=== PATIENT | male | born 1960 | race Caucasian/White ===

== ENCOUNTER 2016-03-18 01:40 | Emergency (ER) | payer OTHER ==
[2016-03-18 02:28] LABS: Hematocrit 46 % (42-52); Hemoglobin 15.4 g/dl (14.0-18.0); Mean Corpuscular HGB Conc 33 g/dl (31-36); Mean Corpuscular Hemoglobin 29 pg (27-31); Mean Corpuscular Volume 87 fL (80-94); Mean Platelet Volume 7 um3 (7.4-10.4); Red Blood Count 5.36 10^6/ul (4.0-5.4); Red Cell Distribution Width 17 % (10.5-15); White Blood Count 5.5 10^3/ul (3.5-10.8)
[2016-03-18 02:46] LABS: ALT 63 U/L (7-52); AST 117 U/L (13-39); Albumin 4.1 g/dL (3.2-5.2); Alkaline Phosphatase 94 U/L (34-104); Anion Gap 15 mmol/L (2-11); BUN/Creatinine Ratio 11.2 (8-20); Blood Urea Nitrogen 11 mg/dL (6-24); CO2 Carbon Dioxide 20 mmol/L (22-32); Calcium 9.1 mg/dL (8.6-10.3); Chloride 96 mmol/L (101-111); EGFR African American 101.4 (>60); EGFR Non-African American 78.8 (>60); Globulin 4.3 g/dL (2-4); Glucose 114 mg/dL (70-100); Potassium 3.5 mmol/L (3.5-5.0); Sodium 131 mmol/L (133-145); Total Protein 8.4 g/dL (6.4-8.9)
[2016-03-18 03:19] LABS: Acetaminophen < 15 mcg/mL; Alcohol 353 mg/dL (<10); Salicylate < 2.50 mg/dL (<30)
[2016-03-18 03:30] LABS: TSH (Thyroid Stimulating Horm) 2.27 mcIU/mL (0.34-5.60)
[2016-03-18 03:42] LABS: Urine Bilirubin Negative (Negative); Urine Glucose Negative (Negative); Urine Nitrite Negative (Negative)
[2016-03-18 03:56] LABS: Benzodiazepine Urine Screen None Detected (None Detect)
--- NOTE | 2016-03-18 05:52 | ED ---
Maria E Modi Erika, scribed for David Ireland MD on 03/18/16 at 0359 . Psychiatric Complaint - HPI Summary HPI Summary: Patient is a 55-year-old male BIB police to the ED. Pt was driving and was stopped by the police, and breathalyzer read 0.28. Patient reports that he has been drinking heavily recently, and has not been eating well. He states he tends to drink more around this time of year due to the anniversary of his brother's . Pt also complains of nausea, vomiting, and abdominal pain, all of which have been occurring for weeks. LEVEL 5 CAVEAT - PT INTOXICATED - History Of Current Complaint Chief Complaint: EDSubstanceAbuse Hx Obtained From: Patient, Other: - Police Onset/Duration: Gradual Onset, Lasting Weeks, Still Present Timing: Constant Severity Initially: Moderate Character: Stuporous Aggravating Factor(s): Other - Anniversary of brother's Alleviating Factor(s): Nothing Associated Signs And Symptoms: Positive: Appetite Change Related History: Positive For: Prior Psychiatric Issues Ingestion History: Type/Name Of Drug - Alcohol, Amount Ingested - States "4 beers" - Allergies/Home Medications Allergies/Adverse Reactions: Allergies Allergy/AdvReac Type Severity Reaction Status Date / Time No Known Allergies Allergy Verified 03/18/16 02:18 PMH/Surg Hx/FS Hx/Imm Hx Endocrine/Hematology History: Denies: Hx Diabetes Cardiovascular History: Reports: Hx Angina, Hx Hypercholesterolemia, Hx Hypertension Respiratory History: Denies: Hx Asthma, Hx Chronic Obstructive Pulmonary Disease (COPD) GI History: Reports: Hx Gastroesophageal Reflux Disease, Hx Gastrointestinal Bleed, Other GI Disorders - pancreatitis; esophageal stricture Musculoskeletal History: Reports: Hx Back Problems Denies: Hx Arthritis, Hx Osteoporosis Sensory History: Reports: Hx Contacts or Glasses Opthamlomology History: Reports: Hx Contacts or Glasses - Surgical History Surgery Procedure, Year, and Place: pediatric fractures Infectious Disease History: No Infectious Disease History: Denies: Traveled Outside the [place] in Last 30 Days - Family History Known Family History: Positive: Cardiac Disease - Social History Alcohol Use: Weekly Hx Substance Use: No Substance Use Type: Reports: None Hx Tobacco Use: No Smoking Status (MU): Never Smoked Tobacco Review of Systems - ROS Summary Review of Systems Summary: LEVEL 5 CAVEAT - PT INTOXICATED Positive: Abdominal Pain, Vomiting, Nausea Psychological: Other - Intoxicated All Other Systems Reviewed And Are Negative: No Physical Exam Triage Information Reviewed: Yes Vital Signs On Initial Exam: Initial Vitals Temp Pulse Resp BP Pulse Ox 98.5 F 122 18 155/110 100 03/18/16 01:45 03/18/16 01:45 03/18/16 01:45 03/18/16 01:45 03/18/16 01:45 Vital Signs Reviewed: Yes Completion Of Physical Exam Limited Due To: Level 5 - INTOXICATED Neurological: Positive: Other - Awake, alert, agitated, and stuporous Diagnostics - Vital Signs Vital Signs Temp Pulse Resp BP Pulse Ox 03/18/16 01:45 98.5 F 122 18 155/110 100 - Laboratory Lab Results: Lab Results 03/18/16 03/18/16 03/18/16 Range/Units 02:14 02:14 03:33 WBC 5.5 (3.5-10.8) 10^3/ul RBC 5.36 (4.0-5.4) 10^6/ul Hgb 15.4 (14.0-18.0) g/dl Hct 46 (42-52) % MCV 87 (80-94) fL MCH 29 (27-31) pg MCHC 33 (31-36) g/dl RDW 17 H (10.5-15) % Plt Count 235 (150-450) 10^3/ul MPV 7 L (7.4-10.4) um3 Neut % (Auto) 56.6 (38-83) % Lymph % (Auto) 32.1 (25-47) % [place] % (Auto) 9.1 H (1-9) % Eos % (Auto) 0.2 (0-6) % Baso % (Auto) 2.0 (0-2) % Absolute Neuts (auto) 3.1 (1.5-7.7) 10^3/ul Absolute Lymphs (auto) 1.8 (1.0-4.8) 10^3/ul Absolute Monos (auto) 0.5 (0-0.8) 10^3/ul Absolute Eos (auto) 0 (0-0.6) 10^3/ul Absolute Basos (auto) 0.1 (0-0.2) 10^3/ul Absolute Nucleated RBC 0.01 10^3/ul Nucleated RBC % 0.1 Sodium 131 L (133-145) mmol/L Potassium 3.5 (3.5-5.0) mmol/L Chloride 96 L (101-111) mmol/L Carbon Dioxide 20 L (22-32) mmol/L Anion Gap 15 H (2-11) mmol/L BUN 11 (6-24) mg/dL Creatinine 0.98 (0.67-1.17) mg/dL Est GFR ( Amer) 101.4 (>60) Est GFR (Non-Af Amer) 78.8 (>60) BUN/Creatinine Ratio 11.2 (8-20) Glucose 114 H (70-100) mg/dL Calcium 9.1 (8.6-10.3) mg/dL Total Bilirubin 0.90 (0.2-1.0) mg/dL AST 117 H (13-39) U/L ALT 63 H (7-52) U/L Alkaline Phosphatase 94 (34-104) U/L Total Protein 8.4 (6.4-8.9) g/dL Albumin 4.1 (3.2-5.2) g/dL Globulin 4.3 H (2-4) g/dL Albumin/Globulin Ratio 1.0 (1-3) TSH 2.27 (0.34-5.60) mcIU/mL Urine Color Straw Urine Appearance Clear Urine pH 6.0 (5-9) Ur Specific [place] 1.002 L (1.010-1.030) Urine Protein Negative (Negative) Urine Ketones Negative (Negative) Urine Blood Negative (Negative) Urine Nitrate Negative (Negative) Urine Bilirubin Negative (Negative) Urine Urobilinogen Negative (Negative) Ur Leukocyte Esterase Negative (Negative) Urine Glucose Negative (Negative) Salicylates < 2.50 (<30) mg/dL Urine Opiates Screen (None Detect) Acetaminophen < 15 mcg/mL Ur Barbiturates Screen (None Detect) Ur Phencyclidine Scrn (None Detect) Ur Amphetamines Screen (None Detect) U Benzodiazepines Scrn (None Detect) Urine Cocaine Screen (None Detect) U Cannabinoids Screen (None Detect) Serum Alcohol 353 H (<10) mg/dL 03/18/16 Range/Units 03:33 WBC (3.5-10.8) 10^3/ul RBC (4.0-5.4) 10^6/ul Hgb (14.0-18.0) g/dl Hct (42-52) % MCV (80-94) fL MCH (27-31) pg MCHC (31-36) g/dl RDW (10.5-15) % Plt Count (150-450) 10^3/ul MPV (7.4-10.4) um3 Neut % (Auto) (38-83) % Lymph % (Auto) (25-47) % [place] % (Auto) (1-9) % Eos % (Auto) (0-6) % Baso % (Auto) (0-2) % Absolute Neuts (auto) (1.5-7.7) 10^3/ul Absolute Lymphs (auto) (1.0-4.8) 10^3/ul Absolute Monos (auto) (0-0.8) 10^3/ul Absolute Eos (auto) (0-0.6) 10^3/ul Absolute Basos (auto) (0-0.2) 10^3/ul Absolute Nucleated RBC 10^3/ul Nucleated RBC % Sodium (133-145) mmol/L Potassium (3.5-5.0) mmol/L Chloride (101-111) mmol/L Carbon Dioxide (22-32) mmol/L Anion Gap (2-11) mmol/L BUN (6-24) mg/dL Creatinine (0.67-1.17) mg/dL Est GFR ( Amer) (>60) Est GFR (Non-Af Amer) (>60) BUN/Creatinine Ratio (8-20) Glucose (70-100) mg/dL Calcium (8.6-10.3) mg/dL Total Bilirubin (0.2-1.0) mg/dL AST (13-39) U/L ALT (7-52) U/L Alkaline Phosphatase (34-104) U/L Total Protein (6.4-8.9) g/dL Albumin (3.2-5.2) g/dL Globulin (2-4) g/dL Albumin/Globulin Ratio (1-3) TSH (0.34-5.60) mcIU/mL Urine Color Urine Appearance Urine pH (5-9) Ur Specific [place] (1.010-1.030) Urine Protein (Negative) Urine Ketones (Negative) Urine Blood (Negative) Urine Nitrate (Negative) Urine Bilirubin (Negative) Urine Urobilinogen (Negative) Ur Leukocyte Esterase (Negative) Urine Glucose (Negative) Salicylates (<30) mg/dL Urine Opiates Screen None detected (None Detect) Acetaminophen mcg/mL Ur Barbiturates Screen None detected (None Detect) Ur Phencyclidine Scrn None detected (None Detect) Ur Amphetamines Screen None detected (None Detect) U Benzodiazepines Scrn None detected (None Detect) Urine Cocaine Screen Presumptive positive H (None Detect) U Cannabinoids Screen None detected (None Detect) Serum Alcohol (<10) mg/dL Result Diagrams: 03/18/16 02:14 03/18/16 02:14 Lab Statement: Any lab studies that have been ordered have been reviewed, and results considered in the medical decision making process. Course/Dx - Course Assessment/Plan: Pt serum alcohol is 353. Pt will receive MHU Eval at sobriety. MHE PENDING AT SHIFT CHANGE. STABLE IN ED. - Differential Dx/Clinical Impression Provider Diagnosis: Mental health problem, Alcohol intoxication Discharge - Discharge Plan Condition: Stable Disposition: PSYCHIATRIC FACILITY-[facility] [place] Discharge Disposition Comment: Signed out to Dr. Heller pending sobriety and MHU Evaluation Referrals: Gabriele Fields MD [Primary Care Provider] - The documentation as recorded by the Maria E sandhu Erika accurately reflects the service I personally performed and the decisions made by me, David Ireland MD.
[2016-03-18] MEDS ORDERED: Al Hydrox/Mg Hydrox/Simet LIQ* 30 ML UDC PO ONE ×2 (06:05→14:28)
[2016-03-18] MEDS ORDERED: Lidocaine 2% VISCOUS* 15 ML UDC PO ONE ×2 (06:05→14:28)
[2016-03-18] MEDS ORDERED: LORazepam TAB(*) 1 MG PO ONE (06:05)
--- NOTE | 2016-03-18 14:25 | PN ---
ED Flex Patient Progress Note Subjective: This is a 55 year-old M who is pending eval by the [facility]. Private Branch Exchange Operator was asked to reevaluate the patient as he was complaining of abdominal pain. In addition it was noted that he was tachycardic at 135. He presented to the ED with acute alcohol intoxication. He states that he's had abdominal pain for 1 week, but symptoms on and off for years. He states that he's been unable to eat due to the pain, and he's been drinking chocolate milk, water and alcohol. He states that he vomits up all the food that he drinks. He denies fevers. Patient states that he always has diarrheal BM, and his last one was today. He denies any black or bloody stools. No previous abdominal surgeries. No chest pain, no SOB. Objective: Vitals: Most recent vital signs documented below. General NAD, Alert and oriented x3. Smells of alcohol, limited historian. Not diaphoretic, does not appear outwardly to be in pain. not tremulous Heart: rrr at 130s bpm Lungs: CTA or with rales, rhonchi, wheezing ABD: RUQ and epigastric tenderness, liver seems to be enlarged on exam. No rebound or guarding. Normoactive bowel sounds. Laboratory: Current laboratory results documented below. With elevated LFTs. Assessment: Alcohol abuse Abdominal pain Tachycardia Plan: Return to ED for fluids, ativan, amylase/lipase, CT exam of abd/pelvis. Discussed with Dr. Heller who agrees with plan of care. Vital Signs Temp Pulse Resp BP Pulse Ox 97.8 F 97 18 156/98 99 03/18/16 06:40 03/18/16 06:40 03/18/16 06:40 03/18/16 06:40 03/18/16 06:40 Lab Results - Entire Visit 03/18/16 03/18/16 03/18/16 03:33 03:33 02:14 WBC RBC Hgb Hct MCV MCH MCHC RDW Plt Count MPV Neut % (Auto) Lymph % (Auto) [place] % (Auto) Eos % (Auto) Baso % (Auto) Absolute Neuts (auto) Absolute Lymphs (auto) Absolute Monos (auto) Absolute Eos (auto) Absolute Basos (auto) Absolute Nucleated RBC Nucleated RBC % Sodium 131 L Potassium 3.5 Chloride 96 L Carbon Dioxide 20 L Anion Gap 15 H BUN 11 Creatinine 0.98 Est GFR ( Amer) 101.4 Est GFR (Non-Af Amer) 78.8 BUN/Creatinine Ratio 11.2 Glucose 114 H Calcium 9.1 Total Bilirubin 0.90 AST 117 H ALT 63 H Alkaline Phosphatase 94 Total Protein 8.4 Albumin 4.1 Globulin 4.3 H Albumin/Globulin Ratio 1.0 TSH 2.27 Urine Color Straw Urine Appearance Clear Urine pH 6.0 Ur Specific [place] 1.002 L Urine Protein Negative Urine Ketones Negative Urine Blood Negative Urine Nitrate Negative Urine Bilirubin Negative Urine Urobilinogen Negative Ur Leukocyte Esterase Negative Urine Glucose Negative Salicylates < 2.50 Urine Opiates Screen None detected Acetaminophen < 15 Ur Barbiturates Screen None detected Ur Phencyclidine Scrn None detected Ur Amphetamines Screen None detected U Benzodiazepines Scrn None detected Urine Cocaine Screen Presumptive positive H U Cannabinoids Screen None detected Serum Alcohol 353 H 03/18/16 02:14 WBC 5.5 RBC 5.36 Hgb 15.4 Hct 46 MCV 87 MCH 29 MCHC 33 RDW 17 H Plt Count 235 MPV 7 L Neut % (Auto) 56.6 Lymph % (Auto) 32.1 [place] % (Auto) 9.1 H Eos % (Auto) 0.2 Baso % (Auto) 2.0 Absolute Neuts (auto) 3.1 Absolute Lymphs (auto) 1.8 Absolute Monos (auto) 0.5 Absolute Eos (auto) 0 Absolute Basos (auto) 0.1 Absolute Nucleated RBC 0.01 Nucleated RBC % 0.1 Sodium Potassium Chloride Carbon Dioxide Anion Gap BUN Creatinine Est GFR ( Amer) Est GFR (Non-Af Amer) BUN/Creatinine Ratio Glucose Calcium Total Bilirubin AST ALT Alkaline Phosphatase Total Protein Albumin Globulin Albumin/Globulin Ratio TSH Urine Color Urine Appearance Urine pH Ur Specific [place] Urine Protein Urine Ketones Urine Blood Urine Nitrate Urine Bilirubin Urine Urobilinogen Ur Leukocyte Esterase Urine Glucose Salicylates Urine Opiates Screen Acetaminophen Ur Barbiturates Screen Ur Phencyclidine Scrn Ur Amphetamines Screen U Benzodiazepines Scrn Urine Cocaine Screen U Cannabinoids Screen Serum Alcohol
[2016-03-18] MEDS ORDERED: SCOP/HYOS/ATR/PB(NF) 10 ML UDC PO ONE (14:28)
[2016-03-18] MEDS ORDERED: LORazepam INJ* 2 MG/ML 1 ML VIAL IV PUSH ONE ×3 (14:31→22:38)
[2016-03-18] MEDS ORDERED: Iohexol 300* (CONTRAST) 10 ML SDV IV ONE (14:46)
[2016-03-18 15:03] LABS: Amylase 44 U/L (29-103); Lipase 103 U/L (11.0-82.0)
[2016-03-18] MEDS: NS 0.9% 1000 ML* 2,000 ML IV ONE (15:05)
--- NOTE | 2016-03-18 17:12 | RAD ---
CLINICAL HISTORY: Upper abdominal pain COMPARISON: Most recent CT of the abdomen and pelvis is dated January 17, 2014 TECHNIQUE: Contrast enhanced CT examination of the abdomen and pelvis from the lung bases through the initial tuberosities. The patient received 115 mL Omnipaque 300 intravenously prior to imaging.The patient received oral contrast as well prior to imaging. FINDINGS: VISUALIZED LUNG BASES: The visualized lung bases are grossly clear. There is no pleural effusion. ABDOMEN AND PELVIS: There has been interval appearance of homogenous hypoattenuation of the liver parenchyma relative to the most recent CT examination. The liver measures 22.8 cm in greatest cephalocaudal projection compared to 20.2 cm on the previous CT examination. The spleen, pancreas and adrenal glands are grossly normal in appearance. The gallbladder is normal. The kidneys are normal in appearance without focal mass, calcification or signs of hydronephrosis. The oral contrast has progressed as far as the midportion of the small bowel. There is questionable circumferential thickening involving the gastric fundus and antrum up to the junction with the first portion of the duodenum. The small and large bowel are not distended. The patient's normal appendix is identified in the right lower quadrant. There is no gross retroperitoneal or mesenteric lymphadenopathy. The pelvic viscera is normal in appearance. The abdominal aorta and iliac arteries are normal in course and diameter. Degenerative changes include multilevel loss of intervertebral disc height involving the lower thoracic and lumbar spine.There are no sinister bone lesions. IMPRESSION: 1. Compared to the January 17, 2014 CT examination there has been interval development of homogenous low density infiltration of the liver and hepatomegaly consistent with hepatic steatosis. Please correlate to LFTs and level of alcohol consumption. 2. There is the appearance of circumferential thickening of the gastric wall which is either a consequence of underdistention or could be seen in the setting of gastritis.
--- NOTE | 2016-03-18 22:38 | ED ---
Progress - Progress Note Progress Note: Pt signed out to me for results of CT abd/pelvis which are negative for acute changes. Pt is comfortable but his hr is 115 and sbp is 175 giving 2mg IV ativan and he is stable for mhe - Consult/PCP Time Called: 12:00 Course/Dx - Diagnoses Provider Diagnoses: Mental health problem, Alcohol intoxication
[2016-03-18 22:41] VITALS: BP 185/104
[2016-03-19] MEDS ORDERED: Omeprazole CAP* 20 MG PO ONE (00:41)
--- NOTE | 2016-03-19 07:49 | PN ---
Romel Modi SooYoung, scribed for Reyes Heller MD on 03/18/16 at 1606 . Subjective - Subjective Subjective: RE-EVAL at 1600: Abd pain resolved, nontender abd, resting comfortably. Suspect some sx related to EtOH withdrawl. signed out to Dr. Hanna pending CT, and psych evaluation when medically clear Weight: 86.183 kg Medication Orders: Current Medications Sodium Chloride (Ns 0.9% 1000 Ml*) 2,000 mls @ 1,000 mls/hr IV ED ONCE ONE Stop: 03/18/16 16:24 Last Admin: 03/18/16 15:05 Dose: 1,000 mls/hr Home Medications: Home Medications Medication Instructions Recorded Confirmed Type Simvastatin 40 mg PO DAILY 07/30/12 01/17/14 History Benazepril HCl 20 mg PO DAILY 01/17/14 01/17/14 History Gemfibrozil TAB* [Lopid TAB*] 600 mg PO BID 01/17/14 01/17/14 History Omeprazole CAP* [Prilosec CAP* 20 20 mg PO DAILY 01/17/14 01/17/14 History MG] amLODIPine TAB* [Norvasc TAB*] 10 mg PO DAILY 01/17/14 01/17/14 History Results/Investigations Lab Results: 03/18/16 03/18/16 03/18/16 02:14 02:14 03:33 WBC 5.5 RBC 5.36 Hgb 15.4 Hct 46 MCV 87 MCH 29 MCHC 33 RDW 17 H Plt Count 235 MPV 7 L Neut % (Auto) 56.6 Lymph % (Auto) 32.1 [place] % (Auto) 9.1 H Eos % (Auto) 0.2 Baso % (Auto) 2.0 Absolute Neuts (auto) 3.1 Absolute Lymphs (auto) 1.8 Absolute Monos (auto) 0.5 Absolute Eos (auto) 0 Absolute Basos (auto) 0.1 Absolute Nucleated RBC 0.01 Nucleated RBC % 0.1 Sodium 131 L Potassium 3.5 Chloride 96 L Carbon Dioxide 20 L Anion Gap 15 H BUN 11 Creatinine 0.98 Est GFR ( Amer) 101.4 Est GFR (Non-Af Amer) 78.8 BUN/Creatinine Ratio 11.2 Glucose 114 H Calcium 9.1 Total Bilirubin 0.90 AST 117 H ALT 63 H Alkaline Phosphatase 94 Total Protein 8.4 Albumin 4.1 Globulin 4.3 H Albumin/Globulin Ratio 1.0 Amylase Lipase TSH 2.27 Urine Color Straw Urine Appearance Clear Urine pH 6.0 Ur Specific [employer] 1.002 L Urine Protein Negative Urine Ketones Negative Urine Blood Negative Urine Nitrate Negative Urine Bilirubin Negative Urine Urobilinogen Negative Ur Leukocyte Esterase Negative Urine Glucose Negative Salicylates < 2.50 Urine Opiates Screen Acetaminophen < 15 Ur Barbiturates Screen Ur Phencyclidine Scrn Ur Amphetamines Screen U Benzodiazepines Scrn Urine Cocaine Screen U Cannabinoids Screen Serum Alcohol 353 H 03/18/16 03/18/16 03:33 14:40 WBC RBC Hgb Hct MCV MCH MCHC RDW Plt Count MPV Neut % (Auto) Lymph % (Auto) [place] % (Auto) Eos % (Auto) Baso % (Auto) Absolute Neuts (auto) Absolute Lymphs (auto) Absolute Monos (auto) Absolute Eos (auto) Absolute Basos (auto) Absolute Nucleated RBC Nucleated RBC % Sodium Potassium Chloride Carbon Dioxide Anion Gap BUN Creatinine Est GFR ( Amer) Est GFR (Non-Af Amer) BUN/Creatinine Ratio Glucose Calcium Total Bilirubin AST ALT Alkaline Phosphatase Total Protein Albumin Globulin Albumin/Globulin Ratio Amylase 44 Lipase 103 H TSH Urine Color Urine Appearance Urine pH Ur Specific [employer] Urine Protein Urine Ketones Urine Blood Urine Nitrate Urine Bilirubin Urine Urobilinogen Ur Leukocyte Esterase Urine Glucose Salicylates Urine Opiates Screen None detected Acetaminophen Ur Barbiturates Screen None detected Ur Phencyclidine Scrn None detected Ur Amphetamines Screen None detected U Benzodiazepines Scrn None detected Urine Cocaine Screen Presumptive positive H U Cannabinoids Screen None detected Serum Alcohol Vitals Vital Signs: Vital Signs 03/18/16 03/18/16 03/18/16 01:45 06:21 06:40 Temperature 98.5 F 97.8 F Pulse Rate 122 97 Respiratory 18 15 18 Rate Blood Pressure 155/110 156/98 (mmHg) O2 Sat by Pulse 100 99 Oximetry 03/18/16 03/18/16 03/18/16 14:34 14:35 14:41 Temperature Pulse Rate 112 114 Respiratory Rate Blood Pressure 163/118 154/105 (mmHg) O2 Sat by Pulse 97 97 Oximetry 03/18/16 03/18/16 03/18/16 14:47 14:51 15:00 Temperature 98.7 F Pulse Rate 110 137 117 Respiratory 18 Rate Blood Pressure 158/115 158/99 156/113 (mmHg) O2 Sat by Pulse 97 98 98 Oximetry 03/18/16 15:09 Temperature Pulse Rate Respiratory 17 Rate Blood Pressure (mmHg) O2 Sat by Pulse Oximetry Patient Problems: Patient Problems Problem Status Onset Code Hypokalemia Acute 01/17/14 E87.6 Melena Acute 01/17/14 K92.1 HTN (hypertension) Chronic I10 Prescriptions: Omeprazole CAP* [Prilosec CAP* 20 MG] 20 mg PO BID #30 cap.dr The documentation as recorded by the Romel sandhu SooYoung accurately reflects the service I personally performed and the decisions made by , Reyes Heller MD.
== END 2016-03-19 01:01 | disposition home or self-care (01) ==
LOC: ED 01:40
DX: F10.129 Alcohol abuse with intoxication, unspecified (principal); Z00.8 Encounter for other general examination; R11.2 Nausea with vomiting, unspecified; R10.9 Unspecified abdominal pain
CPT/HCPCS: 36415; 74177; 80053; 80301; 80320; 80329; 81003; 82150; 83690; 84443; 85025; 99284; A9270-GY; G0479; G0480; J2060; Q9967

== ENCOUNTER 2016-09-29 12:30 | Emergency (ER) | payer OTHER ==
[2016-09-29] MEDS ORDERED: Thiamine IV* 100 MG, Folic Acid IV* 1 MG, Multiple Vitamin IV ADULT* 10 ML, Magnesium S... IV ONE ×5 (13:38)
[2016-09-29 14:25] LABS: Hematocrit 42 % (42-52); Hemoglobin 13.8 g/dl (14.0-18.0); Mean Corpuscular HGB Conc 33 g/dl (31-36); Mean Corpuscular Hemoglobin 29 pg (27-31); Mean Corpuscular Volume 87 fL (80-94); Mean Platelet Volume 7 um3 (7.4-10.4); Red Cell Distribution Width 18 % (10.5-15); White Blood Count 3.9 10^3/ul (3.5-10.8)
[2016-09-29 14:42] LABS: ALT 45 U/L (7-52); AST 88 U/L (13-39); Albumin 4.1 g/dL (3.2-5.2); Alkaline Phosphatase 69 U/L (34-104); BUN/Creatinine Ratio 8.6 (8-20); Blood Urea Nitrogen 6 mg/dL (6-24); CO2 Carbon Dioxide 20 mmol/L (22-32); Chloride 97 mmol/L (101-111); EGFR Non-African American 115.8 (>60); Globulin 3.4 g/dL (2-4); Glucose 138 mg/dL (70-100); Sodium 132 mmol/L (133-145); Total Protein 7.5 g/dL (6.4-8.9)
[2016-09-29 14:46] LABS: Anion Gap 15 mmol/L (2-11); Potassium 2.7 mmol/L (3.5-5.0)
[2016-09-29 15:09] LABS: Acetaminophen < 15 mcg/mL; Alcohol 287 mg/dL (<10); Salicylate < 2.50 mg/dL (<30)
[2016-09-29 15:10] LABS: TSH (Thyroid Stimulating Horm) 1.15 mcIU/mL (0.34-5.60)
[2016-09-29] MEDS ORDERED: KCL 20 MEQ/100 ML IVPREMIX* 20 MEQ/100 ML BAG ONE (15:13)
[2016-09-29] MEDS: KCL 20 MEQ/100 ML IVPREMIX* 20 MEQ/100 ML BAG IV SCH ×2 (15:21→18:24)
[2016-09-29 18:12] LABS: Urine Bilirubin Negative (Negative); Urine Glucose Negative (Negative); Urine Nitrite Negative (Negative)
[2016-09-29] MEDS ORDERED: Potassium Chlor TAB* 20 MEQ TAB.ER PO ONE (18:16)
[2016-09-29 18:28] LABS: Benzodiazepine Urine Screen None Detected (None Detect)
[2016-09-29 21:41] VITALS: BP 122/92
--- NOTE | 2016-09-30 16:21 | ED ---
Dayron Modi Alok, scribed for Moshe Reagan MD on 09/29/16 at 1330 . Substance Abuse/Use - HPI Summary HPI Summary: 56M presents to the ED seeking rehabilitation for alcoholism. Pt notes drinking 6-7 beers per day for the last few weeks and states he does not want to drink ETOH anymore. Pt states he has not eaten for the past 10 days due to lack of appetite. Pt also notes tachycardia as well as approximate weight loss of 15 lbs in the last 2 weeks. Pt denies abd pain or nausea. Pt state she takes no other drugs. PMHx includes HTN, GERD, and HLD. Pt states he has not taken his HTN medications for the last year. - History Of Current Complaint Chief Complaint: EDGeneral Stated Complaint: ETOH WITHDRAWL Time Seen by Provider: 09/29/16 13:24 Hx Obtained From: Patient Onset/Duration of Drug/ETOH Abuse: Weeks Timing Of Abuse: Daily Severity Initially: Moderate Severity Currently: Moderate Aggravating Factor(s): Nothing Alleviating Factor(s): Nothing Associated Signs And Symptoms: Appetite Change - No food last 10 days, Other: - weight loss - Allergies/Home Medications Allergies/Adverse Reactions: Allergies Allergy/AdvReac Type Severity Reaction Status Date / Time No Known Allergies Allergy Verified 09/29/16 13:23 PMH/Surg Hx/FS Hx/Imm Hx Endocrine/Hematology History: Denies: Hx Diabetes Cardiovascular History: Reports: Hx Angina, Hx Hypercholesterolemia, Hx Hypertension Respiratory History: Denies: Hx Asthma, Hx Chronic Obstructive Pulmonary Disease (COPD) GI History: Reports: Hx Gastroesophageal Reflux Disease, Hx Gastrointestinal Bleed, Other GI Disorders - pancreatitis; esophageal stricture Musculoskeletal History: Reports: Hx Back Problems Denies: Hx Arthritis, Hx Osteoporosis Sensory History: Reports: Hx Contacts or Glasses Opthamlomology History: Reports: Hx Contacts or Glasses Psychiatric History: Denies: Hx Eating Disorder, Hx of Violent Episodes Against Others - Surgical History Surgery Procedure, Year, and Place: pediatric fractures Infectious Disease History: No Infectious Disease History: Denies: Traveled Outside the [place] in Last 30 Days - Family History Known Family History: Positive: Cardiac Disease - Social History Occupation: Employed Full-time Lives: With Family Alcohol Use: Weekly Alcohol Amount: hx of alcoholism, Hx Substance Use: No Substance Use Type: Reports: None Hx Tobacco Use: No Smoking Status (MU): Never Smoked Tobacco Review of Systems Negative: Fever Positive: Other - appetite loss, weight loss. Negative: Abdominal Pain, Nausea All Other Systems Reviewed And Are Negative: Yes Physical Exam Triage Information Reviewed: Yes Vital Signs On Initial Exam: Initial Vitals Temp Pulse Resp BP Pulse Ox 97.5 F 110 20 144/92 98 09/29/16 12:38 09/29/16 12:38 09/29/16 12:38 09/29/16 12:38 09/29/16 12:38 Vital Signs Reviewed: Yes Appearance: Positive: Well-Appearing, No Pain Distress Skin: Positive: Warm, Skin Color Reflects Adequate Perfusion, Dry Head/Face: Positive: Normal Head/Face Inspection Eyes: Positive: Normal ENT: Positive: Normal ENT inspection Neck: Positive: Supple, Nontender Respiratory/Lung Sounds: Positive: Clear to Auscultation, Breath Sounds Present Cardiovascular: Positive: RRR Abdomen Description: Positive: Nontender, Soft Bowel Sounds: Positive: Present Musculoskeletal: Positive: Normal Neurological: Positive: Normal Psychiatric: Positive: Normal, Affect/Mood Appropriate Diagnostics - Vital Signs Vital Signs Temp Pulse Resp BP Pulse Ox 09/29/16 13:13 97.5 F 98 16 145/96 96 09/29/16 12:38 97.5 F 110 20 144/92 98 - Laboratory Lab Results: Lab Results 09/29/16 09/29/16 09/29/16 Range/Units 14:10 14:10 18:03 WBC 3.9 (3.5-10.8) 10^3/ul RBC 4.80 (4.0-5.4) 10^6/ul Hgb 13.8 L (14.0-18.0) g/dl Hct 42 (42-52) % MCV 87 (80-94) fL MCH 29 (27-31) pg MCHC 33 (31-36) g/dl RDW 18 H (10.5-15) % Plt Count 138 L (150-450) 10^3/ul MPV 7 L (7.4-10.4) um3 Neut % (Auto) 58.6 (38-83) % Lymph % (Auto) 28.3 (25-47) % Norman % (Auto) 12.1 H (1-9) % Eos % (Auto) 0.4 (0-6) % Baso % (Auto) 0.6 (0-2) % Absolute Neuts (auto) 2.3 (1.5-7.7) 10^3/ul Absolute Lymphs (auto) 1.1 (1.0-4.8) 10^3/ul Absolute Monos (auto) 0.5 (0-0.8) 10^3/ul Absolute Eos (auto) 0 (0-0.6) 10^3/ul Absolute Basos (auto) 0 (0-0.2) 10^3/ul Absolute Nucleated RBC 0.01 10^3/ul Nucleated RBC % 0.2 Sodium 132 L (133-145) mmol/L Potassium 2.7 L* (3.5-5.0) mmol/L Chloride 97 L (101-111) mmol/L Carbon Dioxide 20 L (22-32) mmol/L Anion Gap 15 H (2-11) mmol/L BUN 6 (6-24) mg/dL Creatinine 0.70 (0.67-1.17) mg/dL Est GFR ( Amer) 149.0 (>60) Est GFR (Non-Af Amer) 115.8 (>60) BUN/Creatinine Ratio 8.6 (8-20) Glucose 138 H (70-100) mg/dL Calcium 9.0 (8.6-10.3) mg/dL Total Bilirubin 1.20 H (0.2-1.0) mg/dL AST 88 H (13-39) U/L ALT 45 (7-52) U/L Alkaline Phosphatase 69 (34-104) U/L Total Protein 7.5 (6.4-8.9) g/dL Albumin 4.1 (3.2-5.2) g/dL Globulin 3.4 (2-4) g/dL Albumin/Globulin Ratio 1.2 (1-3) TSH 1.15 (0.34-5.60) mcIU/mL Urine Color Yellow Urine Appearance Clear Urine pH 6.0 (5-9) Ur Specific Sterling 1.004 L (1.010-1.030) Urine Protein Negative (Negative) Urine Ketones Negative (Negative) Urine Blood Negative (Negative) Urine Nitrate Negative (Negative) Urine Bilirubin Negative (Negative) Urine Urobilinogen Negative (Negative) Ur Leukocyte Esterase Negative (Negative) Urine Glucose Negative (Negative) Salicylates < 2.50 (<30) mg/dL Urine Opiates Screen (None Detect) Acetaminophen < 15 mcg/mL Ur Barbiturates Screen (None Detect) Ur Phencyclidine Scrn (None Detect) Ur Amphetamines Screen (None Detect) U Benzodiazepines Scrn (None Detect) Urine Cocaine Screen (None Detect) U Cannabinoids Screen (None Detect) Serum Alcohol 287 H (<10) mg/dL 09/29/16 Range/Units 18:03 WBC (3.5-10.8) 10^3/ul RBC (4.0-5.4) 10^6/ul Hgb (14.0-18.0) g/dl Hct (42-52) % MCV (80-94) fL MCH (27-31) pg MCHC (31-36) g/dl RDW (10.5-15) % Plt Count (150-450) 10^3/ul MPV (7.4-10.4) um3 Neut % (Auto) (38-83) % Lymph % (Auto) (25-47) % Norman % (Auto) (1-9) % Eos % (Auto) (0-6) % Baso % (Auto) (0-2) % Absolute Neuts (auto) (1.5-7.7) 10^3/ul Absolute Lymphs (auto) (1.0-4.8) 10^3/ul Absolute Monos (auto) (0-0.8) 10^3/ul Absolute Eos (auto) (0-0.6) 10^3/ul Absolute Basos (auto) (0-0.2) 10^3/ul Absolute Nucleated RBC 10^3/ul Nucleated RBC % Sodium (133-145) mmol/L Potassium (3.5-5.0) mmol/L Chloride (101-111) mmol/L Carbon Dioxide (22-32) mmol/L Anion Gap (2-11) mmol/L BUN (6-24) mg/dL Creatinine (0.67-1.17) mg/dL Est GFR ( Amer) (>60) Est GFR (Non-Af Amer) (>60) BUN/Creatinine Ratio (8-20) Glucose (70-100) mg/dL Calcium (8.6-10.3) mg/dL Total Bilirubin (0.2-1.0) mg/dL AST (13-39) U/L ALT (7-52) U/L Alkaline Phosphatase (34-104) U/L Total Protein (6.4-8.9) g/dL Albumin (3.2-5.2) g/dL Globulin (2-4) g/dL Albumin/Globulin Ratio (1-3) TSH (0.34-5.60) mcIU/mL Urine Color Urine Appearance Urine pH (5-9) Ur Specific Sterling (1.010-1.030) Urine Protein (Negative) Urine Ketones (Negative) Urine Blood (Negative) Urine Nitrate (Negative) Urine Bilirubin (Negative) Urine Urobilinogen (Negative) Ur Leukocyte Esterase (Negative) Urine Glucose (Negative) Salicylates (<30) mg/dL Urine Opiates Screen None detected (None Detect) Acetaminophen mcg/mL Ur Barbiturates Screen None detected (None Detect) Ur Phencyclidine Scrn None detected (None Detect) Ur Amphetamines Screen None detected (None Detect) U Benzodiazepines Scrn None detected (None Detect) Urine Cocaine Screen None detected (None Detect) U Cannabinoids Screen None detected (None Detect) Serum Alcohol (<10) mg/dL Result Diagrams: 09/29/16 14:10 09/29/16 14:10 Lab Statement: Any lab studies that have been ordered have been reviewed, and results considered in the medical decision making process. Course/Dx - Course Course Of Treatment: Mr. Zhang presented saying that he drinks constantly and has not eaten for 10 days. He wants to go to outpatient rehab and believes that he has to come here first. He was found to be intoxicated, hypokalemic and hyponatremic. He was given potassium replacement and a 'banana' bag while he sobered up and D/C'd to contact rehab. - Diagnoses Provider Diagnoses: Alcohol intoxication, Alcohol abuse Discharge - Discharge Plan Condition: Stable Disposition: HOME Patient Education Materials: Alcohol Intoxication (ED), Abuse of Alcohol (ED) Referrals: Gabriele Fields MD [Primary Care Provider] - The documentation as recorded by the Dayron sandhu Alok accurately reflects the service I personally performed and the decisions made by me, Moshe Reagan MD.
== END 2016-09-29 21:00 | disposition home or self-care (01) ==
LOC: ED 12:30
DX: F10.129 Alcohol abuse with intoxication, unspecified (principal); F10.10 Alcohol abuse, uncomplicated
CPT/HCPCS: 36415; 80053; 80307; 80320; 80329; 81003; 84443; 85025; 96374; 99283; A9270-GY; G0480; J3475; J3480; J7060